=== PATIENT | male | born 1990 | race Caucasian/White ===

== ENCOUNTER 2023-01-06 00:24 | Emergency (ER) | payer SELFPAY ==
[~2023-01-06] VITALS: Ht 170.2 cm; Wt 88.0 kg
[2023-01-06 00:31] VITALS: BP 129/85; PULSE 72; RESP 18; O2SAT 100
[2023-01-06] MEDS ORDERED: ACETAMINOPHEN 325MG TABLET PO ONE (01:45)
[2023-01-06 01:55] VITALS: TEMP 98.6
[2023-01-06] MEDS ORDERED: NAPR-681 MT (02:54)
== END 2023-01-06 03:41 | disposition home or self-care (01) ==
LOC: ER 00:46
DX: S09.90XA Unspecified injury of head, initial encounter (principal); Y00.XXXA Assault by blunt object, initial encounter; Y93.89 Activity, other specified; Y92.89 Other specified places as the place of occurrence of the external cause; Y99.8 Other external cause status
CPT/HCPCS: 99284